=== PATIENT | female | born 1990 | race American Indian/Alaskan Native ===

== ENCOUNTER 2016-05-29 11:34 | Emergency (ER) | payer MEDICAID, OTHER ==
[2016-05-29 11:56] VITALS: BP 122/81
--- NOTE | 2016-05-29 15:52 | Emergency Department Report ---
- General Chief Complaint: Sore Throat Stated Complaint: SORETHROAT/BODYACHE/FLU SX Time Seen by Provider: 05/29/16 15:33 Source: patient Mode of arrival: Ambulatory Limitations: No Limitations - History of Present Illness Initial Comments: 59 female comes in for complaint of sore throat with body aches and flulike symptoms for 3 days. Patient reports she's been having fever nausea chills she is not able to vomit she does deny ear pain running nose or she does have a sick baby at home. LMP 05/27/16. - Related Data Previous Rx's Medication Instructions Recorded Last Taken Type Ibuprofen [Motrin 600 MG tab] 600 mg PO Q6H #30 tablet 02/15/16 Unknown Rx Amoxicillin [Amoxicillin TAB] 875 mg PO BID #20 tablet 05/29/16 Unknown Rx Ibuprofen [Motrin 600 MG tab] 600 mg PO Q6H PRN #30 tablet 05/29/16 Unknown Rx Allergies Allergy/AdvReac Type Severity Reaction Status Date / Time No Known Allergies Allergy Unverified 07/14/14 04:25 ED Review of Systems ROS: Stated complaint: SORETHROAT/BODYACHE/FLU SX Other details as noted in HPI Constitutional: chills, fever, malaise ENT: throat pain Respiratory: denies: cough Cardiovascular: denies: chest pain Gastrointestinal: nausea. denies: vomiting Musculoskeletal: myalgia, other ED Past Medical Hx - Past Medical History Hx Hypertension: No Hx Congestive Heart Failure: No Hx Diabetes: No Hx Deep Vein Thrombosis: No Hx Renal Disease: No Hx Sickle Cell Disease: No Hx Seizures: No Hx Asthma: No Hx COPD: No Hx HIV: No - Surgical History Past Surgical History?: No - Social History Smoking Status: Never Smoker Substance Use Type: Alcohol - Medications Home Medications: Home Medications Medication Instructions Recorded Confirmed Last Taken Type Ibuprofen [Motrin 600 MG tab] 600 mg PO Q6H #30 tablet 02/15/16 Unknown Rx Amoxicillin [Amoxicillin TAB] 875 mg PO BID #20 tablet 05/29/16 Unknown Rx Ibuprofen [Motrin 600 MG tab] 600 mg PO Q6H PRN #30 tablet 05/29/16 Unknown Rx ED Physical Exam - General Limitations: No Limitations General appearance: alert, in no apparent distress - Head Head exam: Present: atraumatic - Eye Eye exam: Present: normal appearance - ENT ENT exam: Present: normal exam, mucous membranes moist - Expanded ENT Exam Expanded Throat exam: Positive: tonsillar erythema, tonsillomegaly, tonsillar exudate - Neck Neck exam: Present: normal inspection, tenderness, lymphadenopathy - Respiratory Respiratory exam: Present: normal lung sounds bilaterally - Cardiovascular Cardiovascular Exam: Present: normal rhythm, tachycardia - GI/Abdominal GI/Abdominal exam: Present: soft. Absent: distended, tenderness ED Course Vital Signs 05/29/16 11:53 Temperature 100.2 F H Pulse Rate 110 H Respiratory 20 Rate Blood Pressure 122/81 O2 Sat by Pulse 100 Oximetry ED Medical Decision Making - Medical Decision Making Patient's been evaluated by this provider. Went ahead and ordered for a rapid strep in her rapid influenza. We will give patient Motrin for body aches. Patient verbalizes understanding Critical care attestation.: If time is entered above; I have spent that time in minutes in the direct care of this critically ill patient, excluding procedure time. ED Disposition Clinical Impression: Strep throat Disposition: DISCHARGED TO HOME OR SELFCARE Is pt being admited?: No Does the pt Need Aspirin: No Condition: Stable Instructions: Strep Throat (ED) Additional Instructions: All antibiotics. Take ibuprofen when necessary for pain follow up to primary care provider. Prescriptions: Amoxicillin [Amoxicillin TAB] 875 mg PO BID #20 tablet Ibuprofen [Motrin 600 MG tab] 600 mg PO Q6H PRN #30 tablet PRN Reason: Pain Referrals: PRIMARY CARE, [Primary Care Provider] - 3-5 Days TENNILLE WHITE MD [Staff Physician] - 3-5 Days Forms: Work/School Release Form(ED)
[2016-05-29] MEDS ORDERED: MOTRIN PO ONE (15:53)
== END 2016-05-29 16:25 | disposition home or self-care (01) ==
LOC: ED 11:34
DX: J02.0 Streptococcal pharyngitis (principal); R11.0 Nausea; R53.81 Other malaise
CPT/HCPCS: 87400; 87430; 99283